=== PATIENT | female | born 1985 | race Caucasian/White ===

== ENCOUNTER 2017-07-22 15:45 | Emergency (ER) | payer OTHER ==
[2017-07-22 15:50] VITALS: BP 139/74; PULSE 66; RESP 18; TEMP 98.7
--- NOTE | 2017-07-22 16:04 | ED ---
General Adult HPI - General Chief complaint: Extremity Injury, Lower Stated complaint: lt knee injury Time Seen by Provider: 07/22/17 15:51 Source: patient, RN notes reviewed Mode of arrival: wheelchair Limitations: no limitations - History of Present Illness Initial comments: 31-year-old female presents to the emergency department with a chief complaint of left knee pain. Patient states she was jumping on a trampoline and she felt her knee pop in and out. She now has pain with bearing any weight or movement of the knee. She states there is no direct injury. She states it is painful to walk. She states she did not hit her head or having any other places of pain. With rest the pain is better with movement it is worse. Patient denies any recent fever, chills, shortness of breath, chest pain, back pain, abdominal pain, nausea vomiting, numbness or tingling, dysuria or hematuria, constipation or diarrhea, headaches or visual changes, or any other current symptoms. - Related Data Home Medications Medication Instructions Recorded Confirmed Fluticasone Nasal [place] [Flonase 1 spray EA NOSTRIL DAILY PRN 07/22/17 07/22/17 Nasal [place]] diphenhydrAMINE HCL [Benadryl] 50 mg PO BID PRN 07/22/17 07/22/17 Allergies Allergy/AdvReac Type Severity Reaction Status Date / Time No Known Allergies Allergy Verified 07/22/17 15:59 Review of Systems ROS Statement: Those systems with pertinent positive or pertinent negative responses have been documented in the HPI. ROS Other: All systems not noted in ROS Statement are negative. Past Medical History Past Medical History: No Reported History History of Any Multi-Drug Resistant Organisms: None Reported Past Surgical History: No Surgical Hx Reported Additional Past Surgical History / Comment(s): D&C Past Psychological History: No Psychological Hx Reported Smoking Status: Former smoker Past Alcohol Use History: Occasional Past Drug Use History: None Reported General Exam - General Exam Comments Initial Comments: General: The patient is awake and alert, in no distress, and does not appear acutely ill. Neck: The neck is supple, there is no tenderness. Cardiovascular: There is a regular rate and rhythm. No murmur, rub or gallop is appreciated. Respiratory: Lungs are clear to auscultation, respirations are non-labored, breath sounds are equal. No wheezes, stridor, rales, or rhonchi. Musculoskeletal: Sensation intact with 2+ pulses throughout the left lower extremity. At this time patient has full range motion of left hip. There is pain to the left knee on movement. No increased laxity noted. [place] motion of left ankle. Neurological: CN II-XII intact, There are no obvious motor or sensory deficits. Coordination appears grossly intact. Speech is normal. Skin: Skin is warm and dry and no rashes or lesions are noted. Psychiatric: Normal mood and affect. Limitations: no limitations Course Vital Signs 07/22/17 15:47 Temperature 98.7 F Pulse Rate 66 Respiratory 18 Rate Blood Pressure 139/74 O2 Sat by Pulse 99 Oximetry Medical Decision Making - Medical Decision Making 31-year-old female presents with what appears the left knee strain. This time we discussed follow-up with orthopedic. We did discuss return parameters. All questions. Patient family stated they understood and management this plan. All questions have been answered. They will be discharged home. - Radiology Data Radiology results: report reviewed, image reviewed Disposition Clinical Impression: Left knee sprain Disposition: HOME SELF-CARE Condition: Stable Instructions: Knee Sprain (ED) Additional Instructions: Please use medication as discussed. Please follow up with family doctor if symptoms have not improved over the next two days. Please return to the emergency room if your symptoms increase or worsen or for any other concerns. Referrals: Yaya Frost MD [STAFF PHYSICIAN] - 1-2 days Time of Disposition: 16:19
--- NOTE | 2017-07-22 16:15 | XR ---
EXAMINATION TYPE: XR knee complete LT DATE OF EXAM: 07/22/2017 CLINICAL HISTORY: Left knee pain after injury at the [facility] [place] [place] TECHNIQUE: Three views of the left knee are obtained. COMPARISON: None. FINDINGS: There is no acute fracture/dislocation evident in left knee. The tri-compartment joint sp aces appear within normal limits. The overlying soft tissue appears unremarkable. Nonaggressive appe aring sclerotic lesion is seen within the proximal tibia, possibly a bone island. Incidental note is also made of a probable fabella. IMPRESSION: There is no acute fracture or dislocation in the left knee.
== END 2017-07-22 16:25 | disposition home or self-care (01) ==
LOC: EC 15:45
DX: S83.92XA Sprain of unspecified site of left knee, initial encounter (principal); Z87.891 Personal history of nicotine dependence; Y93.44 Activity, trampolining
CPT/HCPCS: 73562; 99283; L1830

== ENCOUNTER → 2017-09-07 | Outpatient (CLI) | payer OTHER | END | disposition home or self-care (01) | LOC: LABMAIN 13:00 | PROVIDERS: ATTEND Nurse Practitioner Acute Care | DX: O26.859 Spotting complicating pregnancy, unspecified trimester (principal); Z3A.00 Weeks of gestation of pregnancy not specified | CPT/HCPCS: 36415; 84702 ==

== ENCOUNTER 2017-09-08 16:45 | Emergency (ER) | payer OTHER ==
[2017-09-08 16:49] VITALS: RESP 18
[2017-09-08] MEDS ORDERED: Rhogam IMMUNE GLOBULIN 1,500 UNIT/1 ML IM ONE (17:10)
[2017-09-08 17:31] LABS: Basophils % (A) 0 %; Eosinophils # (A) 0.1 k/uL (0-0.7); Eosinophils % (A) 2 %; HCT 41.8 % (34.0-46.0); HGB 14.4 gm/dL (11.4-16.0); Lymphocytes # (A) 1.1 k/uL (1.0-4.8); Lymphocytes % (A) 20 %; MCH 29.7 pg (25.0-35.0); MCHC 34.3 g/dL (31.0-37.0); MCV 86.6 fL (80.0-100.0); Mean Platelet Volume 6.9; Monocytes # (A) 0.4 k/uL (0-1.0); Monocytes % (A) 6 %; Neutrophils # (A) 3.9 k/uL (1.3-7.7); Neutrophils % (A) 70 %; Platelet Count 233 k/uL (150-450); RBC 4.83 m/uL (3.80-5.40); RDW 12.8 % (11.5-15.5); WBC 5.6 k/uL (3.8-10.6)
--- NOTE | 2017-09-08 17:33 | ED ---
Female Urogenital HPI - General Chief complaint: Vaginal Bleeding Stated complaint: early /vaginal bleeding Time Seen by Provider: 09/08/17 17:04 Source: patient, RN notes reviewed Mode of arrival: ambulatory Limitations: no limitations - History of Present Illness Initial comments: This is a 31-year-old female presents emergency Department chief complaint of vaginal bleeding and early . Patient states she is A2 and recently found out she is . Patient states that she started spotting today and she is advised to come in because she has Rh-. She states that she needs rolled him at this point. Patient states her CHARACTER IMPERSONATOR is Dr. Lama. Patient states she has mild lower abdominal cramping no dysuria no urinary frequency. Patient denies any fever, chills, nausea, vomiting, diarrhea constipation. Last Menstrual Period: 08/09/17 - Related Data Home Medications Medication Instructions Recorded Confirmed Fluticasone Nasal [place] [Flonase 1 spray EA NOSTRIL DAILY PRN 07/22/17 07/22/17 Nasal [place]] diphenhydrAMINE HCL [Benadryl] 50 mg PO BID PRN 07/22/17 07/22/17 Allergies Allergy/AdvReac Type Severity Reaction Status Date / Time No Known Allergies Allergy Verified 09/08/17 16:49 Review of Systems ROS Statement: Those systems with pertinent positive or pertinent negative responses have been documented in the HPI. ROS Other: All systems not noted in ROS Statement are negative. Past Medical History Past Medical History: No Reported History History of Any Multi-Drug Resistant Organisms: None Reported Past Surgical History: No Surgical Hx Reported Additional Past Surgical History / Comment(s): D&C, leep prodedure Past Psychological History: No Psychological Hx Reported Smoking Status: Former smoker Past Alcohol Use History: Occasional Past Drug Use History: None Reported General Exam Limitations: no limitations General appearance: alert, in no apparent distress Head exam: Present: atraumatic, normocephalic, normal inspection Eye exam: Present: normal appearance, PERRL, EOMI. Absent: scleral icterus, conjunctival injection, periorbital swelling Respiratory exam: Present: normal lung sounds bilaterally. Absent: respiratory distress, wheezes, rales, rhonchi, stridor Cardiovascular Exam: Present: regular rate, normal rhythm, normal heart sounds. Absent: systolic murmur, diastolic murmur, rubs, gallop, clicks GI/Abdominal exam: Present: soft, normal bowel sounds. Absent: distended, tenderness, guarding, rebound, rigid Neurological exam: Present: alert, oriented X3, CN II-XII intact Skin exam: Present: warm, dry, intact, normal color. Absent: rash Course Vital Signs 09/08/17 16:46 Temperature 97.9 F Pulse Rate 99 Respiratory 18 Rate Blood Pressure 185/87 O2 Sat by Pulse 99 Oximetry Medical Decision Making - Medical Decision Making 31-year-old female presented emergency department with chief complaint of vaginal bleeding early . Patient's beta hCG is only 52. This is concerning for possible very early versus failed /missed . Patient was given Rhogam as she is Rh-. Patient will have repeat hCG in 2 days follow-up with Dr. Lama her CHARACTER IMPERSONATOR and return for any worsening symptoms. - Lab Data Result diagrams: 09/08/17 17:20 09/08/17 17:30 Lab Results 09/08/17 09/08/17 09/08/17 Range/Units 17:20 17:21 17:30 WBC 5.6 (3.8-10.6) k/uL RBC 4.83 (3.80-5.40) m/uL Hgb 14.4 (11.4-16.0) gm/dL Hct 41.8 (34.0-46.0) % MCV 86.6 (80.0-100.0) fL MCH 29.7 (25.0-35.0) pg MCHC 34.3 (31.0-37.0) g/dL RDW 12.8 (11.5-15.5) % Plt Count 233 (150-450) k/uL Neutrophils % 70 % Lymphocytes % 20 % Monocytes % 6 % Eosinophils % 2 % Basophils % 0 % Neutrophils # 3.9 (1.3-7.7) k/uL Lymphocytes # 1.1 (1.0-4.8) k/uL Monocytes # 0.4 (0-1.0) k/uL Eosinophils # 0.1 (0-0.7) k/uL Basophils # 0.0 (0-0.2) k/uL Sodium (137-145) mmol/L Potassium (3.5-5.1) mmol/L Chloride (98-107) mmol/L Carbon Dioxide (22-30) mmol/L Anion Gap mmol/L BUN (7-17) mg/dL Creatinine (0.52-1.04) mg/dL Est GFR (CKD-EPI)AfAm (>60 ml/min/1.73 sqM) Est GFR (CKD-EPI)NonAf (>60 ml/min/1.73 sqM) Glucose (74-99) mg/dL Calcium (8.4-10.2) mg/dL Total Bilirubin (0.2-1.3) mg/dL AST (14-36) U/L ALT (9-52) U/L Alkaline Phosphatase (38-126) U/L Total Protein (6.3-8.2) g/dL Albumin (3.5-5.0) g/dL HCG, Quant mIU/mL Urine Color Light Red Urine Appearance Turbid H (Clear) Urine pH 5.5 (5.0-8.0) Ur Specific [place] 1.029 (1.001-1.035) Urine Protein 1+ H (Negative) Urine Glucose (UA) Negative (Negative) Urine Ketones Negative (Negative) Urine Blood Large H (Negative) Urine Nitrite Negative (Negative) Urine Bilirubin Negative (Negative) Urine Urobilinogen <2.0 (<2.0) mg/dL Ur Leukocyte Esterase Small H (Negative) Urine RBC >182 H (0-5) /hpf Urine WBC 68 H (0-5) /hpf Ur Squamous Epith Cells 20 H (0-4) /hpf Amorphous Sediment Few H (None) /hpf Urine Bacteria Few H (None) /hpf Urine Mucus Many H (None) /hpf Blood Type O Negative Blood Type Recheck No Antibody Screen NEGATIVE 09/08/17 Range/Units 17:30 WBC (3.8-10.6) k/uL RBC (3.80-5.40) m/uL Hgb (11.4-16.0) gm/dL Hct (34.0-46.0) % MCV (80.0-100.0) fL MCH (25.0-35.0) pg MCHC (31.0-37.0) g/dL RDW (11.5-15.5) % Plt Count (150-450) k/uL Neutrophils % % Lymphocytes % % Monocytes % % Eosinophils % % Basophils % % Neutrophils # (1.3-7.7) k/uL Lymphocytes # (1.0-4.8) k/uL Monocytes # (0-1.0) k/uL Eosinophils # (0-0.7) k/uL Basophils # (0-0.2) k/uL Sodium 141 (137-145) mmol/L Potassium 3.7 (3.5-5.1) mmol/L Chloride 106 (98-107) mmol/L Carbon Dioxide 21 L (22-30) mmol/L Anion Gap 14 mmol/L BUN 15 (7-17) mg/dL Creatinine 0.70 (0.52-1.04) mg/dL Est GFR (CKD-EPI)AfAm >90 (>60 ml/min/1.73 sqM) Est GFR (CKD-EPI)NonAf >90 (>60 ml/min/1.73 sqM) Glucose 103 H (74-99) mg/dL Calcium 9.6 (8.4-10.2) mg/dL Total Bilirubin 0.5 (0.2-1.3) mg/dL AST 18 (14-36) U/L ALT 23 (9-52) U/L Alkaline Phosphatase 62 (38-126) U/L Total Protein 7.4 (6.3-8.2) g/dL Albumin 4.6 (3.5-5.0) g/dL HCG, Quant 52.5 mIU/mL Urine Color Urine Appearance (Clear) Urine pH (5.0-8.0) Ur Specific [place] (1.001-1.035) Urine Protein (Negative) Urine Glucose (UA) (Negative) Urine Ketones (Negative) Urine Blood (Negative) Urine Nitrite (Negative) Urine Bilirubin (Negative) Urine Urobilinogen (<2.0) mg/dL Ur Leukocyte Esterase (Negative) Urine RBC (0-5) /hpf Urine WBC (0-5) /hpf Ur Squamous Epith Cells (0-4) /hpf Amorphous Sediment (None) /hpf Urine Bacteria (None) /hpf Urine Mucus (None) /hpf Blood Type Blood Type Recheck Antibody Screen Disposition Clinical Impression: Threatened miscarriage in early Disposition: HOME SELF-CARE Condition: Stable Instructions: Threatened Miscarriage (ED) Additional Instructions: Follow-up with your CHARACTER IMPERSONATOR. Please return to the Emergency Department if symptoms worsen or any other concerns. Is patient prescribed a controlled substance at d/c from ED?: No Referrals: None,Stated [Primary Care Provider] - 1-2 days Time of Disposition: 18:44
[2017-09-08 17:40] LABS: Amorphous Sediment,Urine Few /hpf; Appearance,Urine Turbid (Clear); Bacteria,Urine Few /hpf; Bilirubin,Urine Negative (Negative); Blood,Urine Large (Negative); Color,Urine Light Red; Glucose,Urine (UA) Negative (Negative); Ketones,Urine Negative (Negative); Leukocyte Esterase,Urine Small (Negative); Mucus,Urine Many /hpf; Nitrite,Urine Negative (Negative); PH, Urine 5.5 (5.0-8.0); Protein,Urine 1+ (Negative); RBC,Urine >182 /hpf (0-5); Specific Gravity,Urine 1.029 (1.001-1.035); Squamous Epithelial Cell,Urine 20 /hpf (0-4); Urobilinogen,Urine <2.0 mg/dL (<2.0); WBC,Urine 68 /hpf (0-5)
[2017-09-08 17:41] LABS: ALT 23 U/L (9-52); AST 18 U/L (14-36); Albumin 4.6 g/dL (3.5-5.0); Alkaline Phosphatase 62 U/L (38-126); Anion Gap 14 mmol/L; Blood Urea Nitrogen 15 mg/dL (7-17); Calcium 9.6 mg/dL (8.4-10.2); Carbon Dioxide 21 mmol/L (22-30); Chloride 106 mmol/L (98-107); Glucose 103 mg/dL (74-99); Potassium 3.7 mmol/L (3.5-5.1); Sodium 141 mmol/L (137-145); Total Bilirubin 0.5 mg/dL (0.2-1.3); Total Protein 7.4 g/dL (6.3-8.2)
[2017-09-08 17:57] LABS: HCG,Quantitative Serum 52.5 mIU/mL
--- NOTE | 2017-09-08 18:32 | US ---
EXAMINATION TYPE: Ultrasound OB <= 14 weeks transvaginal plus Doppler DATE OF EXAM: 07/23/17 COMPARISON: NONE CLINICAL HISTORY: 31-year-old female Pain. Vaginal spotting x 8 days with change in color and intensi ty today; EXAM PERFORMED: Transvaginal (TV) and Transabdominal (TA) FINDINGS: EXAM MEASUREMENTS: GESTATIONAL AGE / DATING Physician Established: Not yet established ( Dates by LMP: (4 weeks/4 days) EDC: 05/14/2018 Dates by First Scan: No previous; this is first scan Dates by Current Scan for: No IUP seen at this time MATERNAL ANATOMY Uterus: 8.4 x 5.8 x 4.9cm. Tiny 2 mm cervical nabothian cyst. Endometrial stripe: Borderline thickened 1.5 cm. Right Ovary: 3.2 x 1.7 x 2.1; thick walled, complex, oval area is noted with peripheral ring of color flow = 1.7 x 1.2 x 1.1cm most suggestive of a corpus luteum. Satisfactory arterial and venous flow i s demonstrated. Left Ovary: 5.2 x 4.2 x 2.0cm; the ovary contains a cyst measuring 2.8 x 2.9 x 1.8 cm. There is some mural based nodularity measuring 7 x 3 x 3 mm that does not show any internal vascularity. Satisfacto ry arterial and venous flow is demonstrated Post CDS / Adnexa: wnl Presence of free fluid: no Presence of corpus luteal cyst: Suspected on the right. Presence of subchorionic bleed: no IUP seen GESTATION / SURVEY Manager Trading notes: No IUP seen at this time as may be too early to visualize IUP by TV US at 4 weeks days and can not exclude ectopic at this time due to bilateral ovarian changes noted above . Date of LMP: 08/07/2017 Beta HcG (if available): 46.7mIU/mL per 09/07/2017 bloodwork IMPRESSION: 1. Note that the beta-hCG value is below the threshold for identification of a gestational sac. 2. Current differential considerations include nonvisualized ectopic, failed , and too early to visualize normal intrauterine . Recommend serial beta-hCG and ultrasound follow-up to en sure the appearance of a normal pole or cardiac activity. 3. Some changes in the ovaries, suspected 1.7 cm corpus luteum on the right. There is also a 2.9 cm c yst on the left that may have some internal mural nodularity. This should be reassessed at the patien t's follow-up. 4. No sonographic evidence for ovarian torsion.
[2017-09-08 19:16] VITALS: BP 145/77; PULSE 72; TEMP 97.7
== END 2017-09-08 19:14 | disposition home or self-care (01) ==
LOC: EC 16:45
DX: O20.0 Threatened abortion (principal); Z3A.01 Less than 8 weeks gestation of pregnancy; Z87.891 Personal history of nicotine dependence
CPT/HCPCS: 36415; 86900; 86901; 80053; 85025; 86850; 81001; 84702; 76801; 76817; 99284; 96372; J2791

== ENCOUNTER → 2017-09-10 | Outpatient (CLI) | payer OTHER | END | disposition home or self-care (01) | LOC: LABWHC1 09:09 | PROVIDERS: ATTEND Physician Assistant | DX: O20.0 Threatened abortion (principal); Z3A.00 Weeks of gestation of pregnancy not specified | CPT/HCPCS: 36415; 84702 ==

== ENCOUNTER 2017-09-25 15:04 | Emergency (ER) | payer OTHER ==
--- NOTE | 2017-09-25 15:55 | ED ---
General Adult HPI - General Chief complaint: Abdominal Pain Stated complaint: Female Time Seen by Provider: 09/25/17 15:31 Source: patient Mode of arrival: ambulatory Limitations: no limitations - History of Present Illness Initial comments: Candice is a 31 yo female who presents to the ED today for evaluation of persistent vaginal bleeding and cramping since having a miscarriage on 09/08. Candice was initially evaluated in our ER on 09/08 she was found to be with vaginal bleeding, she followed up for repeat BHCG testing 2 days later which confirmed a decreasing BHCG consistent with likely demise. Patient reports that since that time she's been experiencing persistent vaginal bleeding or spotting. She states that she has had dark vaginal bleeding or spotting every day for nearly 3 weeks. She states that there is no heavy bleeding or red bleeding. She's not passing any large clots. However she feels very fatigued and has persistent menstrual like cramping. Had repeat labs drawn today which revealed an increasing beta hCG level, with a beta hCG of 49. She was advised by her OB to come to the ER for further evaluation. The patient denies any fevers, chills, nausea, vomiting, change in bowel or bladder habits. She describes her abdominal discomfort is menstrual like cramping which is been persistent for a number of weeks. She describes the vaginal bleeding is dark brown. She's not had any lightheadedness, chest pain or palpitations. She reports that she is feeling very fatigued and wants to sleep more than usual. - Related Data Home Medications Medication Instructions Recorded Confirmed Ibuprofen [Motrin Ib] 400 mg PO BID PRN 09/25/17 09/25/17 Allergies Allergy/AdvReac Type Severity Reaction Status Date / Time No Known Allergies Allergy Verified 09/25/17 15:49 Review of Systems ROS Statement: Those systems with pertinent positive or pertinent negative responses have been documented in the HPI. ROS Other: All systems not noted in ROS Statement are negative. Constitutional: Denies: fever, chills Respiratory: Denies: cough Cardiovascular: Denies: chest pain, palpitations Endocrine: Reports: fatigue Gastrointestinal: Denies: nausea, vomiting Genitourinary: Reports: abnormal menses. Denies: urgency, dysuria Musculoskeletal: Denies: back pain Skin: Denies: change in color Neurological: Denies: headache, weakness, numbness, paresthesias, confusion Psychiatric: Denies: anxiety, depression Hematological/Lymphatic: Denies: easy bleeding, easy bruising Past Medical History Past Medical History: No Reported History History of Any Multi-Drug Resistant Organisms: None Reported Past Surgical History: No Surgical Hx Reported Additional Past Surgical History / Comment(s): D&C, leep prodedure Past Psychological History: No Psychological Hx Reported Smoking Status: Former smoker Past Alcohol Use History: Occasional Past Drug Use History: Marijuana General Exam Limitations: no limitations General appearance: alert, in no apparent distress Head exam: Present: atraumatic, normocephalic Eye exam: Present: normal appearance, PERRL ENT exam: Present: normal exam Neck exam: Present: normal inspection Respiratory exam: Present: normal lung sounds bilaterally. Absent: respiratory distress Cardiovascular Exam: Present: regular rate, normal rhythm. Absent: tachycardia GI/Abdominal exam: Present: soft, distended Rectal exam: Present: deferred External exam: Present: normal external exam Speculum exam: Present: vaginal bleeding (dark blood in vaginal vault, no active bleeding, no vaginal injury or laceration, normal cervix, no CMT) Extremities exam: Present: normal inspection, full ROM Back exam: Present: normal inspection Neurological exam: Present: alert, oriented X3 Psychiatric exam: Present: normal affect, normal mood Skin exam: Present: warm, dry, intact, normal color. Absent: pallor Course Vital Signs 09/25/17 09/25/17 15:15 18:05 Temperature 98.8 F 98.5 F Pulse Rate 69 68 Respiratory 18 16 Rate Blood Pressure 135/86 144/77 O2 Sat by Pulse 98 97 Oximetry Medical Decision Making - Medical Decision Making The patient was seen and evaluated, history was obtained from the patient and review of medical records Patient with a spontaneous , has persistent vaginal bleeding, cramping and a increasing beta hCG after an initial decrease - is concern for retained placental products Labs and ultrasound imaging were ordered Pelvic exam with dark blood in the vaginal vault, no active bleeding, no signs of injury, no cervical motion tenderness or purulent vaginal discharge Ultrasound with bilateral ovarian cysts, no intrauterine abnormality identified Patient care was discussed with Dr. Watters who is on-call for Dr. Lama. Dr. Watters states that she will discuss this patient's care with Dr. Lama in the skilled trades teacher, they will schedule for r repeat outpatient labs and outpatient follow-up for possible D&C. Patient remains hemodynamically stable with only minimal cramping which she reports results with [facility]. Patient is agreeable to plan for discharge home and outpatient OB follow-up. Patient understands that she needs to return to the emergency department should she develop any worsening abdominal pain, increasing bleeding, lightheadedness, chest pain, shortness of breath or any new or concerning symptoms. All questions pertaining care were answered to the best of my ability and the patient was discharged home with a plan to contact gynecology in the morning for follow-up. - Lab Data Result diagrams: 09/25/17 16:15 Lab Results 09/25/17 09/25/17 Range/Units 16:15 16:15 WBC 5.7 (3.8-10.6) k/uL RBC 4.40 (3.80-5.40) m/uL Hgb 13.1 (11.4-16.0) gm/dL Hct 38.7 (34.0-46.0) % MCV 87.8 (80.0-100.0) fL MCH 29.8 (25.0-35.0) pg MCHC 33.9 (31.0-37.0) g/dL RDW 13.2 (11.5-15.5) % Plt Count 233 (150-450) k/uL Neutrophils % 74 % Lymphocytes % 18 % Monocytes % 6 % Eosinophils % 1 % Basophils % 0 % Neutrophils # 4.2 (1.3-7.7) k/uL Lymphocytes # 1.0 (1.0-4.8) k/uL Monocytes # 0.3 (0-1.0) k/uL Eosinophils # 0.1 (0-0.7) k/uL Basophils # 0.0 (0-0.2) k/uL Urine Color Yellow Urine Appearance Clear (Clear) Urine pH 7.0 (5.0-8.0) Ur Specific [place] 1.014 (1.001-1.035) Urine Protein Negative (Negative) Urine Glucose (UA) Negative (Negative) Urine Ketones Negative (Negative) Urine Blood Small H (Negative) Urine Nitrite Negative (Negative) Urine Bilirubin Negative (Negative) Urine Urobilinogen <2.0 (<2.0) mg/dL Ur Leukocyte Esterase Negative (Negative) Urine RBC <1 (0-5) /hpf Urine WBC <1 (0-5) /hpf Ur Squamous Epith Cells 1 (0-4) /hpf Urine Mucus Rare H (None) /hpf Disposition Clinical Impression: Vaginal bleeding during Disposition: HOME SELF-CARE Condition: Good Instructions: Miscarriage (ED) Is patient prescribed a controlled substance at d/c from ED?: No Referrals: None,Stated [Primary Care Provider] - 1-2 days Time of Disposition: 17:51
[2017-09-25 16:38] LABS: Basophils % (A) 0 %; Eosinophils # (A) 0.1 k/uL (0-0.7); Eosinophils % (A) 1 %; HCT 38.7 % (34.0-46.0); HGB 13.1 gm/dL (11.4-16.0); Lymphocytes % (A) 18 %; MCH 29.8 pg (25.0-35.0); MCHC 33.9 g/dL (31.0-37.0); MCV 87.8 fL (80.0-100.0); Mean Platelet Volume 7.1; Monocytes # (A) 0.3 k/uL (0-1.0); Monocytes % (A) 6 %; Neutrophils # (A) 4.2 k/uL (1.3-7.7); Neutrophils % (A) 74 %; Platelet Count 233 k/uL (150-450); RDW 13.2 % (11.5-15.5); WBC 5.7 k/uL (3.8-10.6)
[2017-09-25 16:41] LABS: Appearance,Urine Clear (Clear); Bilirubin,Urine Negative (Negative); Blood,Urine Small (Negative); Color,Urine Yellow; Glucose,Urine (UA) Negative (Negative); Ketones,Urine Negative (Negative); Leukocyte Esterase,Urine Negative (Negative); Mucus,Urine Rare /hpf; Nitrite,Urine Negative (Negative); Protein,Urine Negative (Negative); RBC,Urine <1 /hpf (0-5); Specific Gravity,Urine 1.014 (1.001-1.035); Squamous Epithelial Cell,Urine 1 /hpf (0-4); Urobilinogen,Urine <2.0 mg/dL (<2.0); WBC,Urine <1 /hpf (0-5)
--- NOTE | 2017-09-25 17:34 | US ---
EXAMINATION TYPE: US transvaginal DATE OF EXAM: 09/25/2017 COMPARISON: 09/08/2017 CLINICAL HISTORY: Pain, vaginal bleeding, cramping, BHCG increasing . Hx of miscarriage x 2 weeks ago . Patient states HCG level was 49.5 today. TECHNIQUE: Transvaginal (TV), with transvesical imaging also obtained. Date of LMP: 09/10/2017, EXAM MEASUREMENTS: Uterus: 7.0 x 4.9 x 4.3 cm Endometrial Stripe: 1.1 cm Right Ovary: 6.0 x 4.5 x 3.3 cm Left Ovary: 3.0 x 1.6 x 1.4 cm 1. Uterus: Anteverted Heterogenous. 2. Endometrium: wnl 3. Right Ovary: Multiple anechoic spherical lesions seen, with posterior wall enhancement and throug h sound acoustic transmission. The largest with internal debris and measures 3.7 x 3.1 x 3.0 cm. 4. Left Ovary: Multiple anechoic spherical lesions seen, with posterior wall enhancement and through sound acoustic transmission. 1- hypoechoic with peripheral vascular flow = 1.7 x 1.4 x 1.3 cm. 2- cystic appearing lesion with internal nodularity - 2.8 x 2.0 x 1.6 cm. Spectral, color and waveform doppler imaging shows good arterial and venous flow within the ovaries ; there is no evidence for ovarian torsion. 5. Bilateral Adnexa: wnl 6. Posterior cul-de-sac: free fluid seen Cervix- wnl IMPRESSION: 1. Normal endometrial examination. 2. Minimal cul-de-sac peritoneal fluid noted. 3. Bilateral ovarian cysts, greater on the right.
[2017-09-25 18:05] VITALS: BP 144/77; PULSE 68; RESP 16; TEMP 98.5
== END 2017-09-25 18:12 | disposition home or self-care (01) ==
LOC: EC 15:04
DX: O46.90 Antepartum hemorrhage, unspecified, unspecified trimester (principal); O99.89 Other specified diseases and conditions complicating pregnancy, childbirth and the puerperium; N83.201 Unspecified ovarian cyst, right side; N83.202 Unspecified ovarian cyst, left side; R10.9 Unspecified abdominal pain; R53.83 Other fatigue; Z87.891 Personal history of nicotine dependence; Z3A.00 Weeks of gestation of pregnancy not specified
CPT/HCPCS: 36415; 76830; 81001; 85025; 93975; 99284

== ENCOUNTER → 2017-09-25 | Outpatient (CLI) | payer OTHER | END | disposition home or self-care (01) | LOC: LABWHC1 11:54 | PROVIDERS: ATTEND Obstetrics & Gynecology | DX: O03.9 Complete or unspecified spontaneous abortion without complication (principal); Z3A.00 Weeks of gestation of pregnancy not specified | CPT/HCPCS: 36415; 84702 ==

== ENCOUNTER → 2017-09-27 | Outpatient (CLI) | payer OTHER ==
[2017-09-27 09:00] LABS: ALT 21 U/L (9-52); AST 17 U/L (14-36); Blood Urea Nitrogen 15 mg/dL (7-17)
[2017-09-27 09:04] LABS: HCG,Quantitative Serum 55.4 mIU/mL
== END | disposition home or self-care (01) ==
LOC: LABWHC1 08:12
PROVIDERS: ATTEND Obstetrics & Gynecology
DX: Z34.80 Encounter for supervision of other normal pregnancy, unspecified trimester (principal); Z3A.00 Weeks of gestation of pregnancy not specified
CPT/HCPCS: 36415; 82565; 84450; 84460; 84520; 84702

== ENCOUNTER → 2017-09-27 | Outpatient (CLI) | payer OTHER ==
[~2017-09-27] MED LIST: METHOTREXATE SODIUM (PF) 25 MG/ML 2 ML VIAL IM ONE
[2017-09-27 12:08] VITALS: BP 128/72; PULSE 69; RESP 16; TEMP 98.5
== END | disposition home or self-care (01) ==
LOC: PROCWHC3 10:50
PROVIDERS: ATTEND Obstetrics & Gynecology
DX: O00.90 Unspecified ectopic pregnancy without intrauterine pregnancy (principal); Z3A.00 Weeks of gestation of pregnancy not specified
CPT/HCPCS: 96402; J9260

== ENCOUNTER → 2017-10-02 | Outpatient (CLI) | payer OTHER | END | disposition home or self-care (01) | LOC: LABWHC1 08:24 | PROVIDERS: ATTEND Obstetrics & Gynecology | DX: O00.90 Unspecified ectopic pregnancy without intrauterine pregnancy (principal) | CPT/HCPCS: 36415; 84702 ==

== ENCOUNTER → 2017-10-04 | Outpatient (CLI) | payer OTHER | END | disposition home or self-care (01) | LOC: LABWHC1 08:11 | PROVIDERS: ATTEND Obstetrics & Gynecology | DX: O00.90 Unspecified ectopic pregnancy without intrauterine pregnancy (principal); Z3A.00 Weeks of gestation of pregnancy not specified | CPT/HCPCS: 36415; 84702 ==

== ENCOUNTER → 2017-10-07 | Outpatient (CLI) | payer OTHER | END | disposition home or self-care (01) | LOC: LABWHC1 15:20 | PROVIDERS: ATTEND Obstetrics & Gynecology | DX: O00.90 Unspecified ectopic pregnancy without intrauterine pregnancy (principal) | CPT/HCPCS: 36415; 84702 ==

== ENCOUNTER → 2019-02-09 | Outpatient (CLI) | payer OTHER | END | disposition home or self-care (01) | LOC: LABWHC1 10:27 | PROVIDERS: ATTEND Obstetrics & Gynecology | DX: O20.0 Threatened abortion (principal); Z3A.00 Weeks of gestation of pregnancy not specified | CPT/HCPCS: 36415; 84702; 86850; 86900; 86901 ==

== ENCOUNTER → 2019-02-11 | Outpatient (CLI) | payer OTHER | END | disposition home or self-care (01) | LOC: LABWHC1 09:03 | PROVIDERS: ATTEND Obstetrics & Gynecology | DX: O20.0 Threatened abortion (principal) | CPT/HCPCS: 36415; 84702 ==

== ENCOUNTER 2019-03-06 15:10 | Emergency (ER) | payer OTHER ==
[2019-03-06 15:24] VITALS: RESP 18
[2019-03-06] MEDS ORDERED: SODIUM CHLORIDE 0.9% 1,000 ML IV STA (15:59)
[2019-03-06] MEDS ORDERED: Rhogam IMMUNE GLOBULIN 1,500 UNIT/1 ML IM ONE (16:00)
--- NOTE | 2019-03-06 16:13 | ED ---
General Adult HPI - General Chief complaint: Vaginal Bleeding Stated complaint: Bleeding 9 wks Time Seen by Provider: 03/06/19 15:29 Source: patient, RN notes reviewed Mode of arrival: ambulatory Limitations: no limitations - History of Present Illness Initial comments: Patient is a female currently 9 weeks who presents to the em ergency Department for spotting. Patient states she started spotting this morning. States she has minimal cramping. Patient states that her last menstrual period was 01/04/2019. States that she did have an intrauterine confirmed by ultrasound last week. Patient states she is Rh factor negative and needs RhoGAM usually. Sates that she tried to call her [employer] instead of coming to the emergency department at their office closed at 1:30. Patient has no other complaints at this time including shortness of breath, chest pain, abdominal pain, nausea or vomiting, headache, or visual changes. - Related Data Home Medications Medication Instructions Recorded Confirmed Ibuprofen [Motrin Ib] 400 mg PO BID PRN 09/25/17 09/25/17 Allergies Allergy/AdvReac Type Severity Reaction Status Date / Time No Known Allergies Allergy Verified 03/06/19 15:20 Review of Systems ROS Statement: Those systems with pertinent positive or pertinent negative responses have been documented in the HPI. ROS Other: All systems not noted in ROS Statement are negative. Past Medical History Past Medical History: No Reported History History of Any Multi-Drug Resistant Organisms: None Reported Past Surgical History: No Surgical Hx Reported Additional Past Surgical History / Comment(s): leep prodedure Past Psychological History: No Psychological Hx Reported Smoking Status: Former smoker Past Alcohol Use History: Occasional Past Drug Use History: None Reported General Exam Limitations: no limitations General appearance: alert, in no apparent distress Head exam: Present: atraumatic, normocephalic, normal inspection Eye exam: Present: normal appearance, PERRL, EOMI. Absent: scleral icterus, conjunctival injection, periorbital swelling ENT exam: Present: normal exam, mucous membranes moist Neck exam: Present: normal inspection, full ROM. Absent: tenderness, meningismus, lymphadenopathy Respiratory exam: Present: normal lung sounds bilaterally. Absent: respiratory distress, wheezes, rales, rhonchi, stridor Cardiovascular Exam: Present: regular rate, normal rhythm, normal heart sounds. Absent: systolic murmur, diastolic murmur, rubs, gallop, clicks GI/Abdominal exam: Present: soft, normal bowel sounds. Absent: distended, tenderness, guarding, rebound, rigid External exam: Present: normal external exam. Absent: erythema, swelling, lesions, lacerations, ecchymosis Speculum exam: Present: vaginal bleeding (Very minimal vaginal bleeding). Ab sent: normal speculum exam, erythema, vaginal discharge, cervical discharge, foreign body, tissue, laceration By manual exam: Present: normal by manual exam. Absent: cervical motion tenderness, adnexal tenderness, adnexal mass, uterine enlargement, uterine tenderness Course Vital Signs 03/06/19 15:20 Temperature 97.7 F Pulse Rate 85 Respiratory 18 Rate Blood Pressure 148/87 O2 Sat by Pulse 99 Oximetry Medical Decision Making - Medical Decision Making CBC CMP unremarkable. Urinalysis shows few urine bacteria, will be cultured. ultrasound shows a gestational age of 8 weeks and 5 days with mild tachycardia with a heart rate of 188. Blood type is O-, patient was given RhoGAM. Trichomonas negative, gonorrhea and chlamydia pending elbow patient is not concerned for this. Discussed threatened miscarriage with patient. Discussed following up with [employer] on Saturday. Discussed returning here if she has any worsening symptoms. She is already established with [employer] [employer]. - Lab Data Result diagrams: 03/06/19 16:51 03/06/19 16:51 Lab Results 03/06/19 03/06/19 03/06/19 Range/Units 16:51 16:51 16:51 WBC 6.4 (3.8-10.6) k/uL RBC 4.41 (3.80-5.40) m/uL Hgb 13.1 (11.4-16.0) gm/dL Hct 38.7 (34.0-46.0) % MCV 87.8 (80.0-100.0) fL MCH 29.8 (25.0-35.0) pg MCHC 33.9 (31.0-37.0) g/dL RDW 12.6 (11.5-15.5) % Plt Count 281 (150-450) k/uL Neutrophils % 76 % Lymphocytes % 16 % Monocytes % 6 % Eosinophils % 1 % Basophils % 0 % Neutrophils # 4.8 (1.3-7.7) k/uL Lymphocytes # 1.0 (1.0-4.8) k/uL Monocytes # 0.4 (0-1.0) k/uL Eosinophils # 0.1 (0-0.7) k/uL Basophils # 0.0 (0-0.2) k/uL Sodium 138 (137-145) mmol/L Potassium 4.3 (3.5-5.1) mmol/L Chloride 105 (98-107) mmol/L Carbon Dioxide 25 (22-30) mmol/L Anion Gap 8 mmol/L BUN 9 (7-17) mg/dL Creatinine 0.61 (0.52-1.04) mg/dL Est GFR (CKD-EPI)AfAm >90 (>60 ml/min/1.73 sqM) Est GFR (CKD-EPI)NonAf >90 (>60 ml/min/1.73 sqM) Glucose 90 (74-99) mg/dL Calcium 9.2 (8.4-10.2) mg/dL Total Bilirubin 0.2 (0.2-1.3) mg/dL AST 16 (14-36) U/L ALT 11 (9-52) U/L Alkaline Phosphatase 59 (38-126) U/L Total Protein 7.0 (6.3-8.2) g/dL Albumin 4.1 (3.5-5.0) g/dL Urine Color Urine Appearance (Clear) Urine pH (5.0-8.0) Ur Specific [place] (1.001-1.035) Urine Protein (Negative) Urine Glucose (UA) (Negative) Urine Ketones (Negative) Urine Blood (Negative) Urine Nitrite (Negative) Urine Bilirubin (Negative) Urine Urobilinogen (<2.0) mg/dL Ur Leukocyte Esterase (Negative) Urine RBC (0-5) /hpf Urine WBC (0-5) /hpf Ur Squamous Epith Cells (0-4) /hpf Urine Bacteria (None) /hpf Trichomonas Ag (Rapid) Negative (Negative) Blood Type Blood Type Recheck Bld Type Recheck Status Antibody Screen Spec Expiration Date 03/06/19 03/06/19 Range/Units 16:51 16:51 WBC (3.8-10.6) k/uL RBC (3.80-5.40) m/uL Hgb (11.4-16.0) gm/dL Hct (34.0-46.0) % MCV (80.0-100.0) fL MCH (25.0-35.0) pg MCHC (31.0-37.0) g/dL RDW (11.5-15.5) % Plt Count (150-450) k/uL Neutrophils % % Lymphocytes % % Monocytes % % Eosinophils % % Basophils % % Neutrophils # (1.3-7.7) k/uL Lymphocytes # (1.0-4.8) k/uL Monocytes # (0-1.0) k/uL Eosinophils # (0-0.7) k/uL Basophils # (0-0.2) k/uL Sodium (137-145) mmol/L Potassium (3.5-5.1) mmol/L Chloride (98-107) mmol/L Carbon Dioxide (22-30) mmol/L Anion Gap mmol/L BUN (7-17) mg/dL Creatinine (0.52-1.04) mg/dL Est GFR (CKD-EPI)AfAm (>60 ml/min/1.73 sqM) Est GFR (CKD-EPI)NonAf (>60 ml/min/1.73 sqM) Glucose (74-99) mg/dL Calcium (8.4-10.2) mg/dL Total Bilirubin (0.2-1.3) mg/dL AST (14-36) U/L ALT (9-52) U/L Alkaline Phosphatase (38-126) U/L Total Protein (6.3-8.2) g/dL Albumin (3.5-5.0) g/dL Urine Color Light Yellow Urine Appearance Clear (Clear) Urine pH 7.5 (5.0-8.0) Ur Specific [place] 1.006 (1.001-1.035) Urine Protein Negative (Negative) Urine Glucose (UA) Negative (Negative) Urine Ketones Negative (Negative) Urine Blood Moderate H (Negative) Urine Nitrite Negative (Negative) Urine Bilirubin Negative (Negative) Urine Urobilinogen <2.0 (<2.0) mg/dL Ur Leukocyte Esterase Negative (Negative) Urine RBC 1 (0-5) /hpf Urine WBC 1 (0-5) /hpf Ur Squamous Epith Cells 1 (0-4) /hpf Urine Bacteria Few H (None) /hpf Trichomonas Ag (Rapid) (Negative) Blood Type O Negative Blood Type Recheck O Neg Bld Type Recheck Status No Antibody Screen NEGATIVE Spec Expiration Date 03/09/20192350 Disposition Clinical Impression: Threatened miscarriage Disposition: HOME SELF-CARE Condition: Good Instructions (If sedation given, give patient instructions): Threatened Miscarriage (ED) Additional Instructions: Please follow up with [employer] [employer] in one to 2 days. Return to the emergency department if you have any worsening symptoms or significant bleeding. Is patient prescribed a controlled substance at d/c from ED?: No Referrals: Segun Lee MD [STAFF PHYSICIAN] - 1-2 days Time of Disposition: 18:27
[2019-03-06 17:06] LABS: Basophils % (A) 0 %; Eosinophils # (A) 0.1 k/uL (0-0.7); Eosinophils % (A) 1 %; HCT 38.7 % (34.0-46.0); HGB 13.1 gm/dL (11.4-16.0); Lymphocytes % (A) 16 %; MCH 29.8 pg (25.0-35.0); MCHC 33.9 g/dL (31.0-37.0); MCV 87.8 fL (80.0-100.0); Mean Platelet Volume 6.4; Monocytes # (A) 0.4 k/uL (0-1.0); Monocytes % (A) 6 %; Neutrophils # (A) 4.8 k/uL (1.3-7.7); Neutrophils % (A) 76 %; Platelet Count 281 k/uL (150-450); RBC 4.41 m/uL (3.80-5.40); RDW 12.6 % (11.5-15.5); WBC 6.4 k/uL (3.8-10.6)
[2019-03-06 17:07] LABS: Appearance,Urine Clear (Clear); Bacteria,Urine Few /hpf; Bilirubin,Urine Negative (Negative); Blood,Urine Moderate (Negative); Color,Urine Light Yellow; Glucose,Urine (UA) Negative (Negative); Ketones,Urine Negative (Negative); Leukocyte Esterase,Urine Negative (Negative); Nitrite,Urine Negative (Negative); PH, Urine 7.5 (5.0-8.0); Protein,Urine Negative (Negative); RBC,Urine 1 /hpf (0-5); Specific Gravity,Urine 1.006 (1.001-1.035); Squamous Epithelial Cell,Urine 1 /hpf (0-4); Urobilinogen,Urine <2.0 mg/dL (<2.0); WBC,Urine 1 /hpf (0-5)
[2019-03-06 17:20] LABS: ALT 11 U/L (9-52); AST 16 U/L (14-36); African American GFR (CKD) >90 (>60 ml/min/1.73 sqM); Albumin 4.1 g/dL (3.5-5.0); Alkaline Phosphatase 59 U/L (38-126); Anion Gap 8 mmol/L; Blood Urea Nitrogen 9 mg/dL (7-17); Calcium 9.2 mg/dL (8.4-10.2); Carbon Dioxide 25 mmol/L (22-30); Chloride 105 mmol/L (98-107); Glucose 90 mg/dL (74-99); Potassium 4.3 mmol/L (3.5-5.1); Sodium 138 mmol/L (137-145); Total Bilirubin 0.2 mg/dL (0.2-1.3)
--- NOTE | 2019-03-06 17:50 | US ---
EXAMINATION TYPE: Transabdominal DATE OF EXAM: 03/06/2019 5:34 PM COMPARISON: NONE CLINICAL HISTORY: bleeding. ; vaginal bleeding earlier today with some spotting yesterday. Patien t stated had intercourse yesterday. EXAM PERFORMED: Transabdominal (TA) EXAM MEASUREMENTS: GESTATIONAL AGE / DATING Physician Established: Not yet established Dates by LMP: (8 weeks/5 days) EDC: 10/11/2019 Dates by First Scan: No previous. Dates by Current Scan for: (8 weeks/5 days) EDC: 10/11/2019 MATERNAL ANATOMY Uterus: 11.3 x 6.4 x 5.7cm Right Ovary: not seen Left Ovary: 4.0 x 2.3 x 3.0cm Post CDS / Adnexa: wnl Presence of free fluid: no Presence of corpus luteal cyst: in left ovary = 2.4 x 2.2 x 1.8cm Presence of subchorionic bleed: no GESTATION / SURVEY CRL: 2.1cm (8 weeks/5 days) Yolk Sac (normal less than 6mm): 4.3mm Heart Rate: 188 bpm, average of 2 heart rates and is greater than normal range 100 to 180bpm) Rhythm: Normal IUP: single, Viable IUP Date of LMP: 01/04/2019 Beta HcG (if available): NA Single, live IUP, 8 weeks/5 days, EDC: 10/11/2019, elevated heart rate at 188bpm. IMPRESSION: The ultrasound gestational age is 8 weeks and 5 days. Mild tachycardia.
[2019-03-06 19:08] VITALS: BP 145/92; PULSE 83; TEMP 98.5
[2019-03-08 14:24] LABS: N. gonorrhoeae,PCR Negative (Neg,Equiv); Neisseria Source Vagina
[2019-03-08 14:38] LABS: C. trachomatis,PCR Negative (Neg,Equiv); Chlamydia trachomatis Source Vagina
== END 2019-03-06 19:07 | disposition home or self-care (01) ==
LOC: EC 15:10
DX: O20.0 Threatened abortion (principal); O36.8310 Maternal care for abnormalities of the fetal heart rate or rhythm, first trimester, not applicable or unspecified; O23.41 Unspecified infection of urinary tract in pregnancy, first trimester; Z3A.08 8 weeks gestation of pregnancy; Z87.891 Personal history of nicotine dependence
CPT/HCPCS: 36415; 86900; 86901; 80053; 85025; 86850; 81001; 84702; 87808; 87491; 87591; 96372; 87070; 87086; 76801; 99284; 96360; J2791

== ENCOUNTER 2019-04-25 13:20 | Emergency (ER) | payer OTHER ==
[2019-04-25 13:47] LABS: Glucose,Whole Blood 98 mg/dL (75-99)
[2019-04-25 14:17] VITALS: RESP 18
[2019-04-25] MEDS ORDERED: SODIUM CHLORIDE 0.9% 1,000 ML IV ONE (15:32)
[2019-04-25 15:36] LABS: ALT 21 U/L (4-34); AST 26 U/L (14-36); African American GFR (CKD) >90 (>60 ml/min/1.73 sqM); Albumin 3.9 g/dL (3.5-5.0); Alkaline Phosphatase 53 U/L (38-126); Anion Gap 8 mmol/L; Blood Urea Nitrogen 11 mg/dL (7-17); Calcium 9.4 mg/dL (8.4-10.2); Carbon Dioxide 21 mmol/L (22-30); Chloride 106 mmol/L (98-107); Glucose 94 mg/dL (74-99); Magnesium 1.7 mg/dL (1.6-2.3); Non-African American GFR(CKD) >90 (>60 ml/min/1.73 sqM); Potassium 4.3 mmol/L (3.5-5.1); Sodium 135 mmol/L (137-145); Total Bilirubin 0.3 mg/dL (0.2-1.3); Total Protein 6.8 g/dL (6.3-8.2)
[2019-04-25 15:43] LABS: Appearance,Urine Clear (Clear); Bacteria,Urine Many /hpf; Bilirubin,Urine Negative (Negative); Blood,Urine Negative (Negative); Color,Urine Light Yellow; Glucose,Urine (UA) Negative (Negative); Ketones,Urine Negative (Negative); Leukocyte Esterase,Urine Small (Negative); Mucus,Urine Rare /hpf; Nitrite,Urine Negative (Negative); PH, Urine 6.5 (5.0-8.0); Protein,Urine Negative (Negative); RBC,Urine <1 /hpf (0-5); Specific Gravity,Urine 1.008 (1.001-1.035); Squamous Epithelial Cell,Urine 4 /hpf (0-4); Urobilinogen,Urine <2.0 mg/dL (<2.0); WBC,Urine <1 /hpf (0-5)
[2019-04-25 15:45] LABS: Basophils % (A) 0 %; Eosinophils # (A) 0.1 k/uL (0-0.7); Eosinophils % (A) 1 %; HCT 36.6 % (34.0-46.0); HGB 12.3 gm/dL (11.4-16.0); Lymphocytes # (A) 0.9 k/uL (1.0-4.8); Lymphocytes % (A) 16 %; MCH 29.4 pg (25.0-35.0); MCHC 33.7 g/dL (31.0-37.0); MCV 87.3 fL (80.0-100.0); Mean Platelet Volume 6.8; Monocytes # (A) 0.3 k/uL (0-1.0); Monocytes % (A) 5 %; Neutrophils # (A) 4.2 k/uL (1.3-7.7); Neutrophils % (A) 76 %; Platelet Count 215 k/uL (150-450); RBC 4.19 m/uL (3.80-5.40); RDW 13.2 % (11.5-15.5); WBC 5.5 k/uL (3.8-10.6)
--- NOTE | 2019-04-25 15:48 | XR ---
EXAMINATION TYPE: XR chest 2V DATE OF EXAM: 04/25/2019 COMPARISON: None HISTORY: 33-year-old female presyncope TECHNIQUE: PA and lateral views FINDINGS: The cardiomediastinal silhouette, aorta, and pulmonary vasculature are within normal limits. Some str kathe atelectasis in the lower lungs. Left-sided nipple ring. No consolidation or pleural effusion. IMPRESSION: No acute cardiopulmonary process.
--- NOTE | 2019-04-25 16:14 | ED ---
General Adult HPI - General Source: patient Mode of arrival: ambulatory Limitations: no limitations <Patricia De La O - Last Filed: 04/25/19 22:28> <Amanda Hartman - Last Filed: 04/26/19 22:11> - General Chief complaint: Dizziness Stated complaint: Blood sugar check Time Seen by Provider: 04/25/19 14:24 - History of Present Illness Initial comments: 33-year-old female currently 16 weeks presents today for 2 presyncopal episodes. Patient states yesterday while she was getting her hair done she began to feel warm she felt slightly nauseous as though she might pass out. Patient sat down she said she felt better. She states she is similar episode this morning. She thought her blood glucose might be low and was admitted to the [facility] department for evaluation. Patient denies syncopal episode chest pain shortness of breath, abdominal pain vaginal bleeding ,vomiting, heart disorderes, no palpitations, leg swelling headache, sensation room spinning, visual changes. Remaining ROS (-). Patient appears well no current symptoms on arrival. (Patricia De La O) - Related Data Home Medications Medication Instructions Recorded Confirmed Ibuprofen [Motrin Ib] 400 mg PO BID PRN 09/25/17 09/25/17 Allergies Allergy/AdvReac Type Severity Reaction Status Date / Time No Known Allergies Allergy Verified 04/25/19 14:17 Review of Systems ROS Other: All systems not noted in ROS Statement are negative. <Patricia De La O - Last Filed: 04/25/19 22:28> ROS Other: All systems not noted in ROS Statement are negative. <Amanda Hartman - Last Filed: 04/26/19 22:11> ROS Statement: Those systems with pertinent positive or pertinent negative responses have been documented in the HPI. Past Medical History Past Medical History: No Reported History History of Any Multi-Drug Resistant Organisms: None Reported Past Surgical History: No Surgical Hx Reported Additional Past Surgical History / Comment(s): leep prodedure Past Psychological History: No Psychological Hx Reported Smoking Status: Former smoker Past Alcohol Use History: Occasional Past Drug Use History: None Reported <Patricia De La O - Last Filed: 04/25/19 22:28> General Exam Limitations: no limitations <Patricia De La O - Last Filed: 04/25/19 22:28> - General Exam Comments Initial Comments: General: The patient is awake and alert, in no distress, and does not appear acutely ill. Eye: +3 mm pupils are equal, round and reactive to light, extra-ocular move ments are intact. No nystagmus. There is normal conjunctiva bilaterally. No signs of icterus. Ears, nose, mouth and throat: There are moist mucous membranes and no oral lesions. Neck: The neck is supple, there is no tenderness or JVD. Cardiovascular: There is a regular rate and rhythm. No murmur, rub or gallop is appreciated. Respiratory: Lungs are clear to auscultation, respirations are non-labored, breath sounds are equal. No wheezes, stridor, rales, or rhonchi. Gastrointestinal: Abdomen consistent with , non-tender abdomen without masses or organomegaly noted. There is no rebound or guarding present. Musculoskeletal: Normal ROM, no tenderness. Strength 5/5. Sensation intact. Radial pulses equal bilaterally 2+. Neurological: A&O x 3. CN II-XII intact grossly, There are no obvious motor or sensory deficits. Coordination appears grossly intact. Speech is normal. Skin: Skin is warm and dry and no rashes or lesions are noted. No Le edema, swelling or calf pain Psychiatric: Cooperative, appropriate mood & affect, normal judgment. (Patricia De La O) Course Vital Signs 04/25/19 04/25/19 14:15 16:31 Temperature 98.0 F 97.9 F Pulse Rate 81 80 Respiratory 18 18 Rate Blood Pressure 129/78 119/74 O2 Sat by Pulse 100 99 Oximetry EKG Findings - EKG Comments: EKG Findings:: Ventricular rate 70 bpm, ID interval 122 ms, to administration 88 ms, QT/QTc/440 ms. This is normal sinus with sinus arrhythmia. No ST elevation or depression noted. <Patricia De La O - Last Filed: 04/25/19 22:28> Medical Decision Making - Lab Data Result diagrams: 04/25/19 15:07 04/25/19 15:07 <Patricia De La O - Last Filed: 04/25/19 22:28> - Lab Data Result diagrams: 04/25/19 15:07 04/25/19 15:07 <Amanda Hartman - Last Filed: 04/26/19 22:11> - Medical Decision Making 33-year-old female presenting for a presyncopal sensation. Patient states she was shaky felt warm nauseous and this patient subsided after a few moments. Denies any other associated symptoms or syncopal episodes. No known cardiac history and EKG no acute findings. Patient has no murmur or leg swelling. Chest x-ray clear laboratory studies stable patient evaluated by my attending provider within ultrasound performed revealing no acute process or complications noted with , heart tones. Dr. Hartman is agreeable to discharge with strict return parameters and outpatient f/u. Patient agreeable and was discharged appearing well. (Patricia De La O) I was available for consultation in the emergency department. The history and physical exam were done by the midlevel provider. I was consulted for this patients care. I reviewed the case with the midlevel provider and based on their presentation of the patient, I agree with the assessment, medical decision making and plan of care as documented. Chart was dictated using [employer] dictation software. Attempts were made to correct any dictation errors however some typographical errors may persist. (Amanda Hartman) - Lab Data Lab Results 04/25/19 04/25/19 04/25/19 Range/Units 13:44 15:07 15:07 WBC 5.5 (3.8-10.6) k/uL RBC 4.19 (3.80-5.40) m/uL Hgb 12.3 (11.4-16.0) gm/dL Hct 36.6 (34.0-46.0) % MCV 87.3 (80.0-100.0) fL MCH 29.4 (25.0-35.0) pg MCHC 33.7 (31.0-37.0) g/dL RDW 13.2 (11.5-15.5) % Plt Count 215 (150-450) k/uL Neutrophils % 76 % Lymphocytes % 16 % Monocytes % 5 % Eosinophils % 1 % Basophils % 0 % Neutrophils # 4.2 (1.3-7.7) k/uL Lymphocytes # 0.9 L (1.0-4.8) k/uL Monocytes # 0.3 (0-1.0) k/uL Eosinophils # 0.1 (0-0.7) k/uL Basophils # 0.0 (0-0.2) k/uL Sodium 135 L (137-145) mmol/L Potassium 4.3 (3.5-5.1) mmol/L Chloride 106 (98-107) mmol/L Carbon Dioxide 21 L (22-30) mmol/L Anion Gap 8 mmol/L BUN 11 (7-17) mg/dL Creatinine 0.54 (0.52-1.04) mg/dL Est GFR (CKD-EPI)AfAm >90 (>60 ml/min/1.73 sqM) Est GFR (CKD-EPI)NonAf >90 (>60 ml/min/1.73 sqM) Glucose 94 (74-99) mg/dL POC Glucose (mg/dL) 98 (75-99) mg/dL POC Glu Waste Elimination Cassia Riddle Calcium 9.4 (8.4-10.2) mg/dL Magnesium 1.7 (1.6-2.3) mg/dL Total Bilirubin 0.3 (0.2-1.3) mg/dL AST 26 (14-36) U/L ALT 21 (4-34) U/L Alkaline Phosphatase 53 (38-126) U/L Troponin I (0.000-0.034) ng/mL Total Protein 6.8 (6.3-8.2) g/dL Albumin 3.9 (3.5-5.0) g/dL Urine Color Urine Appearance (Clear) Urine pH (5.0-8.0) Ur Specific [place] (1.001-1.035) Urine Protein (Negative) Urine Glucose (UA) (Negative) Urine Ketones (Negative) Urine Blood (Negative) Urine Nitrite (Negative) Urine Bilirubin (Negative) Urine Urobilinogen (<2.0) mg/dL Ur Leukocyte Esterase (Negative) Urine RBC (0-5) /hpf Urine WBC (0-5) /hpf Ur Squamous Epith Cells (0-4) /hpf Urine Bacteria (None) /hpf Urine Mucus (None) /hpf 04/25/19 04/25/19 Range/Units 15:07 15:07 WBC (3.8-10.6) k/uL RBC (3.80-5.40) m/uL Hgb (11.4-16.0) gm/dL Hct (34.0-46.0) % MCV (80.0-100.0) fL MCH (25.0-35.0) pg MCHC (31.0-37.0) g/dL RDW (11.5-15.5) % Plt Count (150-450) k/uL Neutrophils % % Lymphocytes % % Monocytes % % Eosinophils % % Basophils % % Neutrophils # (1.3-7.7) k/uL Lymphocytes # (1.0-4.8) k/uL Monocytes # (0-1.0) k/uL Eosinophils # (0-0.7) k/uL Basophils # (0-0.2) k/uL Sodium (137-145) mmol/L Potassium (3.5-5.1) mmol/L Chloride (98-107) mmol/L Carbon Dioxide (22-30) mmol/L Anion Gap mmol/L BUN (7-17) mg/dL Creatinine (0.52-1.04) mg/dL Est GFR (CKD-EPI)AfAm (>60 ml/min/1.73 sqM) Est GFR (CKD-EPI)NonAf (>60 ml/min/1.73 sqM) Glucose (74-99) mg/dL POC Glucose (mg/dL) (75-99) mg/dL POC Glu Waste Elimination ID Calcium (8.4-10.2) mg/dL Magnesium (1.6-2.3) mg/dL Total Bilirubin (0.2-1.3) mg/dL AST (14-36) U/L ALT (4-34) U/L Alkaline Phosphatase (38-126) U/L Troponin I <0.012 (0.000-0.034) ng/mL Total Protein (6.3-8.2) g/dL Albumin (3.5-5.0) g/dL Urine Color Light Yellow Urine Appearance Clear (Clear) Urine pH 6.5 (5.0-8.0) Ur Specific [place] 1.008 (1.001-1.035) Urine Protein Negative (Negative) Urine Glucose (UA) Negative (Negative) Urine Ketones Negative (Negative) Urine Blood Negative (Negative) Urine Nitrite Negative (Negative) Urine Bilirubin Negative (Negative) Urine Urobilinogen <2.0 (<2.0) mg/dL Ur Leukocyte Esterase Small H (Negative) Urine RBC <1 (0-5) /hpf Urine WBC <1 (0-5) /hpf Ur Squamous Epith Cells 4 (0-4) /hpf Urine Bacteria Many H (None) /hpf Urine Mucus Rare H (None) /hpf Disposition Is patient prescribed a controlled substance at d/c from ED?: No Time of Disposition: 16:14 <Patricia De La O - Last Filed: 04/25/19 22:28> <Amanda Hartman - Last Filed: 04/26/19 22:11> Clinical Impression: Lightheaded Disposition: HOME SELF-CARE Condition: Good Instructions (If sedation given, give patient instructions): Non-diabetic Hypoglycemia (ED), Near Syncope (ED) Additional Instructions: Please use medication as discussed. Please follow-up with family doctor in the next 2 days, and OBGYN next Saturday. Please return to emergency room if the symptoms increase or worsen or for any other concerns. Referrals: None,Stated [Primary Care Provider] - 1-2 days Segun Lee MD [STAFF PHYSICIAN] - 1-2 days
[2019-04-25 16:32] VITALS: BP 119/74; PULSE 80; TEMP 97.9
== END 2019-04-25 16:31 | disposition home or self-care (01) ==
LOC: EC 13:20
DX: O26.892 Other specified pregnancy related conditions, second trimester (principal); R42 Dizziness and giddiness; Z3A.16 16 weeks gestation of pregnancy; Z87.891 Personal history of nicotine dependence
CPT/HCPCS: 36415; 71046; 80053; 81001; 83735; 84484; 85025; 93005; 96360; 99284

== ENCOUNTER 2019-09-08 11:58 | Outpatient (CLI) | payer OTHER ==
[2019-09-08 12:53] VITALS: BP 134/73; PULSE 101; RESP 18; TEMP 98.2
--- NOTE | 2019-09-19 09:29 | P.MSEPDOC ---
Presenting Problems - Arrival Data Date of Arrival on Unit: 09/08/19 Time of Arrival on Unit: 11:58 Mode of Transport: Ambulatory - Complaint OB-Reason for Admission/Chief Complaint: Decreased Movement Comment: pt c/o decreased movement since last night Medical History - Information : 4 Para: 1 Term: 1 : 0 Abortions: Spontaneous or Elective: 2 Number of Living Children: 1 - Gestational Age Gestational Age by DEDRICK (wks/days): 35 Weeks and 2 Days Review of Systems - Review of Systems Constitutional: No problems Breast: No problems ENT: No problems Cardiovascular: No problems Respiratory: No problems Gastrointestinal: No problems Genitourinary: No problems Musculoskeletal: No problems Neurological: No problems Skin: No problems Vital Signs - Temperature Temperature: 98.2 F Temperature Source: Temporal Artery Scan - Pulse Right Brachial Pulse Rate: 101 Pulse Assessment Method: Automatic Cuff - Respirations Respiratory Rate: 18 Oxygen Delivery Method: Room Air - Blood Pressure Right Arm Blood Pressure: 134/73 Blood Pressure Mean: 93 Blood Pressure Source: Automatic Cuff Medical Screen Scoring (Pre) - Cervical Exam Dilation: Exam Deferred Effacement: Exam Deferred Membranes: Intact - Uterine Contractions Frequency: > 5 minutes apart = 1 Duration: N/A Intensity: N/A - Maternal Vital Signs Maternal Temperature: N/A Signs of Preeclampsia: N/A Maternal Respirations: N/A - Maternal Trauma Maternal Trauma: N/A - Assessment - Baby A Baseline FHR: 140 Heart Rate - NICHD Category: Category I (Normal) = 0 NST: Reactive Position: N/A Station: N/A - Total Score - Baby A Total Score - Baby A: 1 - Total Score - Baby B Total Score - Baby B: 1 - Total Score - Baby C Total Score - Baby C: 1 - Level of Risk - Baby A Level of Risk - Baby A: Low (0-5) - Level of Risk - Baby B Level of Risk - Baby B: Low (0-5) - Level of Risk - Baby C Level of Risk - Baby C: Low (0-5) Physician Notification (Pre) - Physician Notified Physician Notified Date: 09/08/19 Physician Notified Time: 12:00 New Order Received: Yes Disposition - Disposition OB Disposition: Triage, Discharge to home, Written follow up instructions reviewed Discharge Date: 09/08/19 Discharge Time: 12:45 I agree with the RN Medical Screening Exam: Yes Risk & Benefit of care provided described in d/c instruction: Yes Diagnosis: RELATED CONDITIONS, UNSPECIFIED, THIRD TRIMESTER
== END 2019-09-08 12:45 | disposition home or self-care (01) ==
LOC: FBPOP 11:58
PROVIDERS: ATTEND Obstetrics & Gynecology
DX: O26.93 Pregnancy related conditions, unspecified, third trimester (principal); Z3A.35 35 weeks gestation of pregnancy
CPT/HCPCS: 59025; G0463; 99213

== ENCOUNTER 2019-09-21 13:10 | Outpatient (CLI) | payer OTHER ==
[2019-09-21 14:25] VITALS: BP 136/68; PULSE 92; RESP 16; TEMP 98.3
--- NOTE | 2019-10-10 11:10 | P.MSEPDOC ---
Presenting Problems - Arrival Data Date of Arrival on Unit: 09/21/19 Time of Arrival on Unit: 13:11 Mode of Transport: Ambulatory - Complaint OB-Reason for Admission/Chief Complaint: Decreased Movement Comment: pt arrived c/o decreased movement Medical History - Information : 4 Para: 1 Term: 1 : 0 Abortions: Spontaneous or Elective: 2 Number of Living Children: 1 - Gestational Age Gestational Age by DEDRICK (wks/days): 37 Weeks and 1 Days Review of Systems - Review of Systems Constitutional: No problems Breast: No problems ENT: No problems Cardiovascular: No problems Respiratory: No problems Gastrointestinal: No problems Genitourinary: No problems Musculoskeletal: No problems Neurological: No problems Skin: No problems Vital Signs - Temperature Temperature: 98.3 F Temperature Source: Oral - Pulse Right Brachial Pulse Rate: 92 Pulse Assessment Method: Automatic Cuff - Respirations Respiratory Rate: 16 Oxygen Delivery Method: Room Air - Blood Pressure Right Arm Blood Pressure: 136/68 Blood Pressure Mean: 90 Blood Pressure Source: Automatic Cuff Medical Screen Scoring (Pre) - Cervical Exam Dilation: Exam Deferred Effacement: Exam Deferred Membranes: Intact - Uterine Contractions Frequency: > 5 minutes apart = 1 Duration: N/A Intensity: N/A - Maternal Vital Signs Maternal Temperature: N/A Maternal Blood Pressure: N/A Signs of Preeclampsia: N/A Maternal Respirations: N/A - Maternal Trauma Maternal Trauma: N/A - Assessment - Baby A Baseline FHR: 130 Heart Rate - NICHD Category: Category I (Normal) = 0 NST: Reactive Position: N/A Station: N/A - Total Score - Baby A Total Score - Baby A: 1 - Total Score - Baby B Total Score - Baby B: 1 - Total Score - Baby C Total Score - Baby C: 1 - Level of Risk - Baby A Level of Risk - Baby A: Low (0-5) - Level of Risk - Baby B Level of Risk - Baby B: Low (0-5) - Level of Risk - Baby C Level of Risk - Baby C: Low (0-5) Physician Notification (Pre) - Physician Notified Physician Notified Date: 09/21/19 Physician Notified Time: 14:13 New Order Received: Yes - Notification Comment Comment: reactive NST May discharge to home undelivered with instructions Physician Notification (Post) - Physician Notified Physician Notified Date: 09/21/19 Physician Notified Time: 14:13 Spoke With: Dr Landa New Order Received: Yes - Notification Comment Comment: reactive NST makenzie discharge to home undelivered withinstructions Disposition - Disposition OB Disposition: Discharge to home Discharge Date: 09/21/19 Discharge Time: 14:17 I agree with the RN Medical Screening Exam: Yes Risk & Benefit of care provided described in d/c instruction: Yes Diagnosis: DECREASED MOVEMENTS, THIRD TRIMESTER, FETUS 1
== END 2019-09-21 14:17 | disposition home or self-care (01) ==
LOC: FBPOP 13:10
PROVIDERS: ATTEND Obstetrics & Gynecology
DX: O36.8131 Decreased fetal movements, third trimester, fetus 1 (principal); Z3A.37 37 weeks gestation of pregnancy
CPT/HCPCS: 59025; G0463; 99213

== ENCOUNTER 2019-10-04 05:00 | Inpatient (IN) | payer OTHER ==
[2019-10-04] MEDS ORDERED: OXYTOCIN 10 UNIT/ML 1 ML VIAL IM PRN (05:10)
[2019-10-04] MEDS ORDERED: TERBUTALINE 1 MG/ML VIAL SQ PRN (05:10)
[2019-10-04] MEDS ORDERED: CARBOPROST TROMETHAMINE 250 MCG/ML 1 ML AMP IM PRN (05:10)
[2019-10-04] MEDS ORDERED: LIDOCAINE 0.5% (PF) 5 MG/ML (50 ML SDV) SQ PRN (05:10)
[2019-10-04] MEDS ORDERED: METHYLERGONOVINE 0.2 MG/ML 1 ML AMP IM PRN (05:10)
[2019-10-04] MEDS ORDERED: OXYTOCIN 30 UNITS/500 ML NS 30 UNIT in SALINE 1 500ML.BAG IV SCH (05:15)
[2019-10-04] MEDS: LACTATED RINGERS 1,000 ML IV SCH ×3 (05:33→06:58)
[2019-10-04 05:50] LABS: Basophils % (A) 0 %; Eosinophils # (A) 0.1 k/uL (0-0.7); Eosinophils % (A) 1 %; HGB 12.3 gm/dL (11.4-16.0); Lymphocytes # (A) 1.2 k/uL (1.0-4.8); Lymphocytes % (A) 11 %; MCH 30.7 pg (25.0-35.0); MCHC 33.1 g/dL (31.0-37.0); MCV 92.8 fL (80.0-100.0); Mean Platelet Volume 7.6; Monocytes # (A) 0.6 k/uL (0-1.0); Monocytes % (A) 5 %; Neutrophils # (A) 8.9 k/uL (1.3-7.7); Neutrophils % (A) 82 %; Platelet Count 215 k/uL (150-450); RBC 3.99 m/uL (3.80-5.40); RDW 14.3 % (11.5-15.5); WBC 10.9 k/uL (3.8-10.6)
[2019-10-04] MEDS ORDERED: fentaNYL (PF) 50 MCG/ML 5 ML AMP ONE (06:11)
[2019-10-04] MEDS ORDERED: ROPIVACAINE 5MG/ML 20ML VIAL ONE (06:11)
[2019-10-04] MEDS ORDERED: SODIUM CHLORIDE 0.9% 100 ML BAG ONE (06:11)
[2019-10-04 06:27] LABS: Amphetamine Screen,Urine Not Detected (NotDetected); Barbiturate Screen,Urine Not Detected (NotDetected); Benzodiazepines Screen,Urine Not Detected (NotDetected); Cocaine Screen,Urine Not Detected (NotDetected); Methadone Screen, Urine Not Detected (NotDetected); Opiate Screen,Urine Not Detected (NotDetected); Oxycodone Screen, Urine Not Detected (NotDetected); Phencyclidine Screen,Urine Not Detected (NotDetected); Tricyclic Antidepressant,Urine Not Detected (NotDetected); Urn Cannabinoid Scrn Not Detected (NotDetected)
--- NOTE | 2019-10-04 08:55 | P.HPOB ---
History of Present Illness H&P Date: 10/04/19 Chief Complaint: Spontaneous rupture of membranes and contractions This is a 33-year-old 4 para 10-1 woman who has an estimated due date of 10/11/2019 placed on LMP consistent with first trimester ultrasound. She presents with contractions for several hours and spontaneous rupture of membranes. Upon initial evaluation in labor and delivery triage rupture of membranes is confirmed and she is 4 cm dilated. Obstetric history: Normal spontaneous vaginal delivery 2004 at 38 weeks gestation. Missed AB 2015, missed AB treated with methotrexate 2017. Laboratory data: Blood type O-, antibody screen week positive anti-D. Rubella immune, VDRL nonreactive, hep Louise surface antigen negative, HIV negative, recovering clinic cultures negative, glucose tolerance testing within normal limits, group B strep negative. Review of Systems All systems: negative Past Medical History Past Medical History: No Reported History History of Any Multi-Drug Resistant Organisms: None Reported Past Surgical History: No Surgical Hx Reported Additional Past Surgical History / Comment(s): leep prodedure Past Anesthesia/Blood Transfusion Reactions: No Reported Reaction Past Psychological History: No Psychological Hx Reported Smoking Status: Never smoker Past Alcohol Use History: Occasional Past Drug Use History: Marijuana Additional Drug Use History / Comment(s): marijuana quit prior to - Past Family History Father Family Medical History: Coronary Artery Disease (CAD), Diabetes Mellitus Medications and Allergies Home Medications Medication Instructions Recorded Confirmed Type Pnv No.95/Ferrous Fum/Folic AC 1 each PO DAILY 09/08/19 10/04/19 History [ Multivitamin Tablet] Omeprazole [PriLOSEC] 40 mg PO DAILY 09/21/19 10/04/19 History Allergies Allergy/AdvReac Type Severity Reaction Status Date / Time No Known Allergies Allergy Verified 10/04/19 05:03 Exam Vital Signs Temp Pulse Resp BP Pulse Ox 10/04/19 06:28 97.5 F L 106 H 18 167/75 100 10/04/19 05:51 97.5 F L 106 H 20 134/84 94 L Intake and Output 10/03/19 10/04/19 10/04/19 22:59 06:59 14:59 Output Total 200 Balance -200 Output: Urine 200 Straight 200 Other: # Voids 2 Weight 107.955 kg Upon my initial evaluation patient is resting comfortably with an epidural anesthetic in place cervix is 6 cm dilated, 100% effaced and the vertex in the - 2 station. Clear fluid is noted. heart tones are category 1 she is tata irregularly every 2-5 minutes. Results Result Diagrams: 10/04/19 00:53 Abnormal Lab Results - Last 24 Hours (Table) 10/04/19 Range/Units 00:53 WBC 10.9 H (3.8-10.6) k/uL Neutrophils # 8.9 H (1.3-7.7) k/uL Assessment and Plan (1) Spontaneous onset of labor Current Visit: Yes Status: Acute Code(s): FCW0374 - SNOMED Code(s): 20540297 (2) Spontaneous rupture of membranes Current Visit: Yes Status: Acute Code(s): LXH4958 - SNOMED Code(s): 477440342 (3) 39 weeks gestation of Current Visit: Yes Status: Acute Code(s): Z3A.39 - 39 WEEKS GESTATION OF SNOMED Code(s): 89197043 (4) Rh negative, maternal Current Visit: Yes Status: Acute Code(s): O26.899 - OTH RELATED CONDITIONS, UNSPECIFIED TRIMESTER; Z67.91 - UNSPECIFIED BLOOD TYPE, RH NEGATIVE SNOMED Code(s): 324194118 Plan: 33-year-old 4 para 10-1 woman admitted with spontaneous rupture of membranes at 39 weeks gestation. Group B strep negative, Rh-. Anticipate normal spontaneous vaginal delivery.
[2019-10-04] MEDS ORDERED: OXYTOCIN 20 UNITS/1000 ML NS 1,000 ML IV SCH (10:30)
[2019-10-04] MEDS ORDERED: HYDROCORTISONE 2.5% RECTAL CREAM 30 GM TUBE RECTAL PRN (10:30)
[2019-10-04] MEDS ORDERED: ACETAMINOPHEN TAB 325 MG TAB PO PRN (10:30)
[2019-10-04] MEDS ORDERED: diphenhydrAMINE 25 MG CAP PO PRN (10:30)
[2019-10-04] MEDS ORDERED: diphenhydrAMINE 50 MG/ML 1 ML VIAL IVP PRN ×2 (10:30)
[2019-10-04] MEDS ORDERED: WITCH HAZEL 1 EACH MED..PAD TOPICAL PRN (10:30)
[2019-10-04] MEDS ORDERED: LANOLIN CREAM 5 GM TUBE TOPICAL PRN (10:30)
[2019-10-04] MEDS ORDERED: BENZOCAINE/MENTHOL SPRAY 1 GM/SPRAY AEROSOL TOPICAL PRN (10:30)
[2019-10-04] MEDS ORDERED: ZOLPIDEM 5 MG TAB PO PRN (10:30)
[2019-10-04] MEDS ORDERED: SIMETHICONE 80 MG CHEWABLE PO PRN (10:30)
[2019-10-04] MEDS ORDERED: diphenhydrAMINE 50 MG CAP PO PRN (10:30)
--- NOTE | 2019-10-04 10:30 | P.PROBDLV ---
Vaginal Delivery Note - . Vaginal Delivery Note: Findings: Female in the vertex left occiput anterior position with Apgars of 9 at 1 minute and 9 at 5 minutes weighing 7 lbs. 7 oz., 3370 g. First-degree perineal laceration. Intact, three-vessel cord placenta. EBL 75 mL's. Delivery summary: This is a 33-year-old 4 para 10-1 woman who presented at 39 weeks with spontaneous rupture of membranes and active labor. Following admission she was 4 cm dilated and received aesthetic. She had decreasing c ontraction activity therefore Pitocin augmentation was initiated. She did reach complete cervical dilation after an approximately 9 hour first stage of labor. She commenced pushing with excellent maternal effort. She was repositioned, prepped and draped in the modified Anupam position. With additional maternal effort the head delivered from the left occiput anterior position followed rapidly by the anterior and posterior shoulders. The resting. Delivered onto the field and the nose and mouth were bulb suctioned. The infant was placed on the maternal abdomen. Eventually the cord was clamped and cut. Apgars were 9 at 1 minute and 9 at 5 minutes and weight was 7 lbs. 7 oz. She had a approximately 15 minute second stage of labor. She had a 5 minute third stage of labor to deliver a intact, three-vessel cord placenta. The perineum was inspected and a first-degree laceration was noted. This was infused with lidocaine and repaired with 3-0 Vicryl suture. She had bilateral. Urethral abrasions that were not actively bleeding. The uterus was massaged and was noted to be firm at approximately the level of the umbilicus. EBL for delivery was a proximally 75 mL's. The patient received Pitocin following third stage of labor. All counts are correct and mother and infant were both doing well post delivery in the room.
[2019-10-04] MEDS ORDERED: Rhogam IMMUNE GLOBULIN 1,500 UNIT/1 ML IM ONE (15:46)
[2019-10-04] MEDS: SENNOSIDES-DOCUSATE SODIUM 1 EACH TAB PO SCH (20:00)
[2019-10-04] MEDS: IBUPROFEN 600 MG TAB PO PRN (20:06)
[2019-10-04 20:27] VITALS: RESP 18
[2019-10-04 23:20] VITALS: TEMP 98.3
[2019-10-05 03:49] LABS: Basophils % (A) 0 %; Eosinophils # (A) 0.1 k/uL (0-0.7); Eosinophils % (A) 1 %; HCT 34.8 % (34.0-46.0); HGB 11.8 gm/dL (11.4-16.0); Lymphocytes # (A) 1.3 k/uL (1.0-4.8); Lymphocytes % (A) 18 %; MCH 32.1 pg (25.0-35.0); MCHC 33.9 g/dL (31.0-37.0); MCV 94.8 fL (80.0-100.0); Mean Platelet Volume 7.5; Monocytes # (A) 0.4 k/uL (0-1.0); Monocytes % (A) 6 %; Neutrophils # (A) 5.4 k/uL (1.3-7.7); Neutrophils % (A) 73 %; Platelet Count 201 k/uL (150-450); RBC 3.67 m/uL (3.80-5.40); RDW 14.3 % (11.5-15.5); WBC 7.4 k/uL (3.8-10.6)
[2019-10-05] MEDS: IBUPROFEN 600 MG TAB PO PRN (08:11)
[2019-10-05] MEDS: SENNOSIDES-DOCUSATE SODIUM 1 EACH TAB PO SCH (08:12)
[2019-10-05 09:51] VITALS: BP 139/88; PULSE 73
--- NOTE | 2019-10-05 10:46 | P.DS ---
Providers Date of admission: 10/04/19 05:12 Expected date of discharge: 10/05/19 Attending physician: Segun Lee Primary care physician: Stated None - Discharge Diagnosis(es) (1) Normal spontaneous vaginal delivery Current Visit: Yes Status: Acute Hospital Course: The patient is a 33-year-old 4 para 1021 admitted at 39-0/7 weeks as established by last menstrual period and first trimester ultrasound. She presents with documented spontaneous rupture of membranes of clear fluid. She had Pitocin augmentation started and thereafter made fairly rapid progress to complete. She then pushed fairly quickly to a normal spontaneous vaginal delivery of a viable 7 lbs. 7 oz. baby girl with Apgars of 9 at 1 minute and 9 at 5 minutes. Her course has been unremarkable with vital signs remaining stable and her temperature was afebrile throughout. She was deemed stable for discharge on day #1 was discharged home to follow-up in the office in 6 weeks' time routinely. Discharge instructions included calling for any significantly increased bleeding or foul-smelling lochia, significantly increased fever abdominal pain, perineal complaints, breast complaints, or anything else that concerned her. She was additionally instructed to have nothing in the vagina for at least 6 weeks time to include intercourse. She understood her instructions and agrees to follow up as noted above. Discharge medications included continued vitamins as she has opted to breast- feed. She was otherwise going to use [id number] analgesic pain medications as needed. Maternal blood type is O- and cord blood was sent for evaluation for the necessity of RhoGAM prior to discharge. Rubella status is immune. Procedures: #1. Pitocin augmentation #2. Normal spontaneous vaginal delivery #3. Repair of perineal laceration Patient Condition at Discharge: Good Plan - Discharge Summary New Discharge Prescriptions: No Action Pnv No.95/Ferrous Fum/Folic AC [ Multivitamin Tablet] 1 each PO DAILY Omeprazole [PriLOSEC] 40 mg PO DAILY Discharge Medication List Pnv No.95/Ferrous Fum/Folic AC [ Multivitamin Tablet] 1 each PO DAILY 09/08/19 [History] Omeprazole [PriLOSEC] 40 mg PO DAILY 09/21/19 [History] Follow up Appointment(s)/Referral(s): Segun Lee MD [STAFF PHYSICIAN] - 6 Weeks Discharge Disposition: HOME SELF-CARE
== END 2019-10-05 13:39 | disposition home or self-care (01) | DRG 807 ==
LOC: FBPOP 05:00 → 4FBP 05:12
PROVIDERS: ADMIT Obstetrics & Gynecology; ATTEND Obstetrics & Gynecology
PROC: 10E0XZZ Delivery of Products of Conception, External Approach (ICD-10-PCS; principal; 2019-10-04)
PROC: 0HQ9XZZ Repair Perineum Skin, External Approach (ICD-10-PCS; 2019-10-04)
PROC: 3E0R3BZ Introduction of Anesthetic Agent into Spinal Canal, Percutaneous Approach (ICD-10-PCS; 2019-10-04)
PROC: 3E0234Z Introduction of Serum, Toxoid and Vaccine into Muscle, Percutaneous Approach (ICD-10-PCS; 2019-10-04)
DX: O36.0930 Maternal care for other rhesus isoimmunization, third trimester, not applicable or unspecified (principal); Z37.0 Single live birth; O70.0 First degree perineal laceration during delivery; O99.62 Diseases of the digestive system complicating childbirth; K21.9 Gastro-esophageal reflux disease without esophagitis; Z3A.39 39 weeks gestation of pregnancy; Z79.899 Other long term (current) drug therapy; Z87.59 Personal history of other complications of pregnancy, childbirth and the puerperium; Z83.3 Family history of diabetes mellitus; Z82.49 Family history of ischemic heart disease and other diseases of the circulatory system
CPT/HCPCS: 80306; 85025; 85461; 86850; 86900; 86901; 99213

== ENCOUNTER → 2020-04-28 | Outpatient (CLI) | payer OTHER ==
[2020-04-28 15:34] LABS: Basophils % (A) 1 %; Eosinophils # (A) 0.1 k/uL (0-0.7); Eosinophils % (A) 1 %; HCT 42.3 % (34.0-46.0); HGB 14.2 gm/dL (11.4-16.0); Lymphocytes # (A) 1.4 k/uL (1.0-4.8); Lymphocytes % (A) 20 %; MCH 29.6 pg (25.0-35.0); MCHC 33.6 g/dL (31.0-37.0); MCV 88.2 fL (80.0-100.0); Mean Platelet Volume 7.3; Monocytes # (A) 0.4 k/uL (0-1.0); Monocytes % (A) 6 %; Neutrophils # (A) 4.8 k/uL (1.3-7.7); Neutrophils % (A) 70 %; Platelet Count 227 k/uL (150-450); RDW 13.5 % (11.5-15.5); WBC 6.9 k/uL (3.8-10.6)
--- NOTE | 2020-04-28 15:40 | US ---
EXAMINATION TYPE: US thyroid st tissue head/neck DATE OF EXAM: 04/28/2020 COMPARISON: NONE CLINICAL HISTORY: R22.9 LOCALIZED SWELLING, MASS AND LUMP, UNSPECIFIED. Pt states feeling a small pal pable left lateral neck x 1 month/ Pt states tender to the touch In area of pt's palpable left lateral neck there appears to be two lymph nodes, one being more hypo echoic than the other 1)= hypoechoic= 0.7 x 0.7 cm 2) echogenic hilum= 0.6 x 0.5 cm IMPRESSION: 1. Small lymph nodes of the palpable region left lateral neck
[2020-04-28 15:43] LABS: ALT 18 U/L (4-34); AST 22 U/L (14-36); African American GFR (CKD) >90 (>60 ml/min/1.73 sqM); Albumin 4.3 g/dL (3.5-5.0); Alkaline Phosphatase 65 U/L (38-126); Anion Gap 6 mmol/L; Blood Urea Nitrogen 14 mg/dL (7-17); Calcium 9.4 mg/dL (8.4-10.2); Carbon Dioxide 27 mmol/L (22-30); Chloride 106 mmol/L (98-107); Glucose 77 mg/dL (74-99); Non-African American GFR(CKD) >90 (>60 ml/min/1.73 sqM); Potassium 4.6 mmol/L (3.5-5.1); Sodium 139 mmol/L (137-145); Total Bilirubin 0.4 mg/dL (0.2-1.3); Total Protein 7.4 g/dL (6.3-8.2)
== END | disposition home or self-care (01) ==
LOC: RADUSWWP 14:42
PROVIDERS: ATTEND Family Medicine
DX: M79.89 Other specified soft tissue disorders (principal)
CPT/HCPCS: 76536; 80053; 85025